=== PATIENT | male | born 1975 | race Caucasian/White ===

== ENCOUNTER 2016-11-21 16:41 | Emergency (ER) | payer MEDICARE, OTHER ==
[~2016-11-21 16:41] MED LIST: ROBAXIN500 MG PO
== END 2016-11-21 19:00 | disposition home or self-care (01) ==
LOC: ER1 16:41
DX: S09.90XA Unspecified injury of head, initial encounter (principal); S83.412A Sprain of medial collateral ligament of left knee, initial encounter; I25.2 Old myocardial infarction; I10 Essential (primary) hypertension; E78.5 Hyperlipidemia, unspecified; F17.210 Nicotine dependence, cigarettes, uncomplicated; W20.8XXA Other cause of strike by thrown, projected or falling object, initial encounter; Z79.899 Other long term (current) drug therapy
CPT/HCPCS: 29530; 70450; 71020; 72125; 73564; 73590; 99284

== ENCOUNTER 2017-02-13 18:51 | Emergency (ER) | payer MEDICARE, OTHER | END 2017-02-13 20:10 | disposition left against medical advice (07) | LOC: ER1 18:51 | DX: Z53.21 Procedure and treatment not carried out due to patient leaving prior to being seen by health care provider (principal) ==

== ENCOUNTER 2017-03-03 13:44 | Emergency (ER) | payer MEDICARE, OTHER | END 2017-03-03 14:52 | disposition home or self-care (01) | LOC: ER1 13:44 | DX: S63.502A Unspecified sprain of left wrist, initial encounter (principal); K21.9 Gastro-esophageal reflux disease without esophagitis; I10 Essential (primary) hypertension; F17.210 Nicotine dependence, cigarettes, uncomplicated; F31.9 Bipolar disorder, unspecified; Z79.899 Other long term (current) drug therapy; W22.8XXA Striking against or struck by other objects, initial encounter | CPT/HCPCS: 73090; 73110; 99283 ==